=== PATIENT | male | born 1950 | race Caucasian/White ===

== ENCOUNTER 2021-12-17 16:16 | Emergency (ER) | payer MEDICARE, MEDICAID ==
[~2021-12-17] VITALS: Ht 177.8 cm; Wt 96.2 kg
[2021-12-17 17:39] LABS: HEMATOCRIT. 33.3 % (42.0-52.0); MEAN CORPUSCULAR HEMOGLOBIN 31.2 pg (28.0-32.0); MEAN CORPUSCULAR VOLUME 94.8 fL (80.0-94.0); MEAN PLATELET VOLUME 6.8 fl (7.4-10.4); PLATELET 399 x1000/uL (130-400); RED BLOOD CELL COUNT 3.51 mill/uL (4.7-6.1); RED CELL DISTRIBUTION WIDTH 14.6 % (11.6-14.6)
[2021-12-17] MEDS ORDERED: LIDOCAINE 5% PATCH TOP SCH ×2 (17:45→21:30)
[2021-12-17] MEDS ORDERED: ACETAMINOPHEN 325MG TABLET PO NR (17:45)
[2021-12-17] MEDS ORDERED: CYCLOBENZAPRINE 10MG TABLET PO ONE (17:45)
[2021-12-17] MEDS ORDERED: CYCLOBENZAPRINE 10MG TABLET PO NR (17:45)
[2021-12-17] MEDS ORDERED: ACETAMINOPHEN 325MG TABLET PO ONE (17:45)
[2021-12-17] MEDS ORDERED: SODIUM CHLORIDE 0.9% 1,000 ML IV ONE (17:45)
[2021-12-17 17:47] LABS: CHLORIDE 99 mEq/L (98-107)
[2021-12-17 20:51] LABS: PLATELET ESTIMATE NORMAL
[2021-12-17] MEDS ORDERED: MAGNESIUM/ALUMINUM HYDROXIDE/SIMETHICONE 30ML UDC PO ONE (21:45)
[2021-12-17 22:00] VITALS: BP 140/89
[2021-12-17 22:43] LABS: CLARITY URINE CLEAR (CLEAR); COLOR URINE DARK YELLOW (YELLOW); KETONES URINE 1+ (NEGATIVE); LEUKOCYTE ESTERASE URINE NEGATIVE (NEGATIVE); NITRITE URINE NEGATIVE (NEGATIVE); OCCULT BLOOD URINE 1+ (NEGATIVE); PH URINE 5.5 (4.5-8.0); PROTEIN URINE 1+ (NEGATIVE); SPECIFIC GRAVITY URINE 1.021 (1.005-1.030)
[2021-12-17 22:48] LABS: *AMPHETAMINES SCREEN URINE NEGATIVE (NEGATIVE); *BARBITURATES SCREEN URINE NEGATIVE (NEGATIVE); *BENZODIAZEPINES SCREEN URINE NEGATIVE (NEGATIVE); *COCAINE SCREEN URINE NEGATIVE (NEGATIVE); CANNABINOID URINE SCREEN NEGATIVE (NEGATIVE); METHADONE URINE SCREEN NEGATIVE (NEGATIVE); OPIATES URINE SCREEN PRESUMTIVE POSITIVE (NEGATIVE); PHENCYCLIDINE URINE SCREEN NEGATIVE (NEGATIVE)
[2021-12-17] MEDS ORDERED: MED4 MT (23:26)
[2021-12-17] MEDS ORDERED: CYCL5TAB MT (23:27)
== END 2021-12-18 00:47 | disposition home or self-care (01) ==
LOC: ER 16:16
DX: M54.9 Dorsalgia, unspecified (principal); M79.661 Pain in right lower leg; I10 Essential (primary) hypertension; Z88.0 Allergy status to penicillin
CPT/HCPCS: 36415; 71045; 80053; 80305; 80320; 81003; 85025; 93005; 96360; 99285; J7030; G0480